=== PATIENT | female | born 1970 | race Caucasian/White ===

== ENCOUNTER 2025-08-26 08:59 | Day surgery (SDC) | payer OTHER ==
[2025-08-26] MEDS ORDERED: Sodium Chloride 0.9(Preservative Free) 10 ML IJ ONE (09:00)
[2025-08-26] MEDS ORDERED: Versed 2 MG/2 ML Injection ONE (11:00)
[2025-08-26] MEDS ORDERED: propofoL IV ONE (12:14)
[2025-08-26] MEDS ORDERED: Lactated Ringers 1,000 ML IV ONE (14:03)
--- NOTE | 2025-08-26 15:01 | XRAY ---
Indication: Left L4-S1 transforaminal LUISA. Intraoperative fluoroscopy provided for 28 seconds. 8 digital spot image submitted for interpretation demonstrates posterior needle tips projecting over expected left L4 and L5 nerve roots. Small amount of contrast injected for needle tip placement. Correlate with intraoperative findings/report.
--- NOTE | 2025-08-26 15:05 | XRAY ---
28 seconds of fluoroscopy was used in surgery for a left L4-S1 transforaminal LUISA.
== END 2025-08-26 12:50 | disposition home or self-care (01) ==
LOC: SDC-PAIN 08:59
PROVIDERS: ATTEND Psychiatry & Neurology Pain Medicine
DX: M54.16 Radiculopathy, lumbar region (principal)